=== PATIENT | male | born 1955 | race Caucasian/White ===

== ENCOUNTER → 2018-09-02 | Outpatient (REF) | payer MEDICARE, OTHER ==
[2018-09-02 20:38] LABS: PLATELET COUNT, AUTOMATED 208 K/uL (150-450)
== END ==
PROVIDERS: ATTEND Nurse Practitioner Family
DX: R31.9 Hematuria, unspecified (principal)
CPT/HCPCS: 85025; G0103; 82040; 82247; 82310; 82374; 82435; 82565; 82947; 84075; 84132; 84153; 84155; 84295; 84450; 84460; 84520

== ENCOUNTER → 2018-09-15 | Outpatient (CLI) | payer MEDICARE, OTHER ==
[~2018-09-15] MED LIST: ASPI-1471 PO; CLOP75TA PO; IOPAMIDOL 76% 100 ML INFUS BTL 100 ML ONE; LORA-629 PO; METF-452 PO; MULT-40; NEBI20TA4 PO; NIFE-15 PO; PANT40TA65 PO; ROSU40TA18 PO
--- NOTE | 2018-09-15 08:42 | RADIOLOGY IMAGING REPORT ---
FACILITY: [facility] PATIENT NAME: Ahsan Drew : 1955 MR: [id number] V: [id number] EXAM DATE: ORDERING PHYSICIAN: PILLO KELLY TECHNOLOGIST: Location: [facility] Patient: Ahsan Drew : 1955 Visit/Account:[id number] Date of Sevice: 09/15/2018 ADDENDUM #1 ADDENDUM: This study has been reviewed and there is a 6 x 4 mm calculus in the proximal left ureter t hat produces minimal hydronephrosis. Report Dictated By: Cedric Mullen MD at 09/16/2018 3:18 PM Report E-Signed By: Cedric Mullen MD at 09/16/2018 3:[address] ABDOMEN PELVIS W & W/O CONTRAST History: 63-year-old male with hematuria. No pain.. Technique: CT images were obtained through the abdomen and pelvis without the injection of intravenou s contrast. Coronal and sagittal reformations were then created. One of the following dose optimization techniques was utilized in the performance of this exam: Autom ated exposure control; adjustment of the mA and/or kV according to the patient's size; or use of an i terative reconstruction technique. Specific details can be referenced in the facility's radiology C T exam operational policy. Comparison study:None Findings: Lung bases: Negative Hepatobiliary: The liver is unremarkable. No focal lesions are seen on this noncontrast study. There are multiple small calcified gallstones in an otherwise normal in collapsed gallbladder. There is no biliary ductal dilatation. Spleen: There are foci of calcification in the spleen suggesting prior granulomatous disease.. Adrenals: Negative Pancreas: Negative. Kidneys/genitourinary/retroperitoneum: There are bilateral renal cysts. There is calcification in the cortical medullary regions of both kidneys without findings of obstruction. This could account for h ematuria. It does not have the appearance of vascular calcification but that cannot be excluded. Ther e is no retroperitoneal lymphadenopathy.. Bowel/peritoneum/mesentery: There is a normal appendix in the right lower quadrant. There is no diver ticulosis or diverticulitis. There is normal appendix in the right lower quadrant. Pelvic/genital urinary: The prostate is mildly enlarged. There may be a small inguinal hernia on the left side that contains adipose tissue. The bladder wall diffusely thickened suggesting chronic bladd er all obstruction. Vessels: There is prominent atherosclerotic dilatation of the aorta and iliac vessels.. Lymph node: Negative. Body wall/bones: Negative Peritoneal cavity: No findings of ascites or pneumoperitoneum. IMPRESSION: 1. There are foci of calcification in the cortical medullary junction of both kidneys were there is n o hydronephrosis. These foci of calcification could represent nonobstructing calculi and because of t his patient's hematuria. Alternatively vascular calcification cannot be excluded. There are bilateral cortical renal cysts. 2. Cholelithiasis without findings of acutely cystitis or biliary ductal dilatation. 3. Enlargement of the prostate with mild thickening of the bladder wall. Report Dictated By: Cedric Mullen MD at 09/15/2018 8:27 AM Report E-Signed By: Cedric Mullen MD at 09/15/2018 8:37 AM WSN:[email or web address]
== END ==
LOC: CT 00:38
PROVIDERS: ATTEND Urology
DX: K80.20 Calculus of gallbladder without cholecystitis without obstruction (principal); N40.0 Benign prostatic hyperplasia without lower urinary tract symptoms; N28.1 Cyst of kidney, acquired; N20.0 Calculus of kidney
CPT/HCPCS: 74178; Q9967

== ENCOUNTER → 2018-09-16 | Outpatient (CLI) | payer MEDICARE, OTHER ==
[~2018-09-16] MED LIST changes: +CIPR-214 PO; -IOPAMIDOL 76% 100 ML INFUS BTL 100 ML ONE
--- NOTE | 2018-09-16 14:45 | RADIOLOGY IMAGING REPORT ---
[place] [facility] [place] NAME: Ahsan Drew : 1955 MR: [id number] V: [id number] EXAM DATE: ORDERING PHYSICIAN: PILLO KELLY TECHNOLOGIST: Location: [facility] Patient: Ahsan Drew : 1955 Visit/Account:[id number] Date of Sevice: 09/16/2018 Exam type: KUB SINGLE VIEW ABDOMEN History: kidney stone Comparison: CT of the abdomen and pelvis performed today. Findings: Bowel gas pattern is nonspecific. There is a small 3 mm calcification projecting lateral to the left transverse process of L4 which likely corresponds to the left ureteral calculus as seen on the recen t CT the nonobstructing nephrolithiasis was better seen on the prior CT exam due to overlapping bowel gas on the KUB. There is no gross evidence of again a megaly. There are spondylotic changes lower lumbar spine IMPRESSION: 1. There is a 3 mm calcification projecting lateral to the left transverse process of L4 likely repr esenting a left ureteral calculus as seen on the recent CT Report Dictated By: Eli Espinal MD at 09/16/2018 2:40 PM Report E-Signed By: Eli Espinal MD at 09/16/2018 2:42 PM WSN:[email or web address]
== END ==
LOC: RAD 10:58
PROVIDERS: ATTEND Urology
DX: N20.0 Calculus of kidney (principal)
CPT/HCPCS: 74018

== ENCOUNTER → 2018-09-17 | Outpatient (CLI) | payer MEDICARE, OTHER ==
--- NOTE | 2018-09-17 14:28 | EKG ---
FACILITY: [facility] [place] PATIENT NAME: HITESH YUAN : [id number] MR: [id number] V: [id number] EXAM DATE: ORDERING PHYSICIAN: PILLO KELLY TECHNOLOGIST: MARY Test Reason : PRE OP Blood Pressure : / mmHG Vent. Rate : 055 BPM Atrial Rate : 055 BPM P-R Int : 212 ms QRS Dur : 112 ms QT Int : 450 ms P-R-T Axes : 064 050 025 degrees QTc Int : 430 ms Sinus bradycardia with 1st degree AV block Otherwise normal ECG No previous ECGs available Confirmed by John Zarate ([id number]) on 09/18/2018 1:08:50 AM Referred By: LETICIA Confirmed By:John Amanda
== END ==
LOC: RESP 12:28
PROVIDERS: ATTEND Urology
DX: Z01.810 Encounter for preprocedural cardiovascular examination (principal)
CPT/HCPCS: 93005

== ENCOUNTER 2018-09-22 00:07 | Day surgery (SDC) | payer MEDICARE, OTHER ==
[~2018-09-22] VITALS: Ht 170.2 cm; Wt 81.2 kg
[2018-09-22] MEDS: FAMOTIDINE 20 MG TAB PO ONE ×2 (07:13→07:29)
[2018-09-22 07:31] VITALS: BP 141/78
[2018-09-22] MEDS ORDERED: LIDOCAINE/SOD BICARB 8.4% SYR ID ONE (07:50)
[2018-09-22] MEDS ORDERED: MIDAZOLAM 2 MG/2 ML VIAL IVP PRN (07:50)
[2018-09-22] MEDS ORDERED: NORMOSOL R SOLN(*) 1000 ML BAG 1,000 ML IV PRN (07:50)
[2018-09-22] MEDS ORDERED: LEVOFLOXACIN/D5W*500 MG/100 ML 100 ML IVPB ONE (07:50)
[2018-09-22 09:02] VITALS: BP 141/83
[2018-09-22 09:34] VITALS: BP 134/92
[2018-09-22 09:35] VITALS: BP 140/81
--- NOTE | 2018-09-22 09:41 | OPERATIVE REPORT 1 ---
EVENT DATE: September 22, 2018 SURGEON: Sharif Casillas MD ANESTHESIOLOGIST: Lewis Aparicio MD ANESTHESIA: Sedation. ELECTRONIC SCANNER OPERATOR: None. PREOPERATIVE DIAGNOSIS Left ureteral calculus. POSTOPERATIVE DIAGNOSIS Left ureteral calculus. PROCEDURE PERFORMED Fluoroscopy, aborted extracorporeal shock wave lithotripsy. DESCRIPTION OF PROCEDURE The patient was brought to the operating room and prior to the induction of general anesthesia, the abdomen was imaged fluoroscopically. The previously noted stone in the mid ureter was again visualized but it was closely adjacent to what was apparent eggshell calcifications of almost a circumferential abdominal aorta. There was no evidence of aneurysmal dilation but I was concerned that given the proximity to the calcified aorta the procedure could not be justified given the asymptomatic nature of his stone. We discussed the option of ureteroscopy but he wishes to avoid a stent. The procedure was terminated and the plan is to follow up in one week with another KUB. JESSI
--- NOTE | 2018-09-22 09:51 | NUR ---
0902 PATIENT ARRIVED IN PHASE II. SBAR REPORT WAS RECEIVED FROM DR. HERNANDEZ AND OPAL DANIELLE RN. PATIENT ARRIVED ON ROOM AIR. DENIES ANY PAIN OR NAUSEA. HE IS SLIGHTLY DROWSY FROM THE [place]. LUNGS ARE CLEAR. BOWEL SOUNDS ARE HYPERACTIVE. 0910 PATIENT BEGAN DRINKING COFFEE 0934 BEGAN DOING ORTHOSTATICS. PATIENT DENIES ANY DIZZINESS OR LIGHTHEADEDNESS. 0935 PATIENT WAS STABLE ON HIS FEET 0938 PATIENT BEGAN GETTING DRESSED 0946 IV WAS DC'D WITH CATH INTACT 0951 PATIENT WAS TAKEN OUT VIA WHEELCHAIR. BOWEL SOUNDS ARE HYPERACTIVE. SEE DISCHARGE ASSESSMENT.
== END 2018-09-22 09:51 | disposition home or self-care (01) ==
LOC: OR 00:07
PROVIDERS: ATTEND Urology
DX: N20.1 Calculus of ureter (principal); R73.03 Prediabetes
CPT/HCPCS: 36416; 82948; J1956; J2250

== ENCOUNTER → 2018-09-26 | Outpatient (CLI) | payer MEDICARE, OTHER ==
--- NOTE | 2018-09-26 10:43 | RADIOLOGY IMAGING REPORT ---
FACILITY: [facility] PATIENT NAME: Ahsan Drew : 1955 MR: [id number] V: [id number] EXAM DATE: ORDERING PHYSICIAN: PILLO KELLY TECHNOLOGIST: Location: [facility] Patient: Ahsan Drew : 1955 Visit/Account:[id number] Date of Sevice: 09/26/2018 Abdomen single view: HISTORY: Left side pain. Kidney stones. COMPARISON: 09/16/2018, CT scan 09/15/2018 FINDINGS: Single view was obtained the abdomen. The calcification seen lateral to the L4 transverse process on the prior abdominal film was not visualized and is not seen along the expected course of t he distal ureter and may have passed. No right renal or ureteral calculi are identified. There are multiple calcifications in the pelvis which are likely phleboliths IMPRESSION: No renal or ureteral calculi identified by plain radiograph. Ureteral stone projecting a t the L4 transverse process on the left on the prior study is not definitively seen. Report Dictated By: Nithya James MD at 09/26/2018 10:26 AM Report E-Signed By: Nithya James MD at 09/26/2018 10:37 AM WSN:[email or web address]
== END ==
LOC: RAD 09:31
PROVIDERS: ATTEND Urology
DX: N20.0 Calculus of kidney (principal)
CPT/HCPCS: 74018